=== PATIENT | female | born 1960 | race Caucasian/White ===

== ENCOUNTER 2017-11-07 12:00 | Inpatient (IN) | payer BC ==
[2017-11-07] MEDS ORDERED: NS 500 ML IV ONE (12:19)
--- NOTE | 2017-11-07 12:27 | CPEKG ---
Heart Rate: 58 RR Interval: 1034 P-R Interval: 188 QRSD Interval: 104 QT Interval: 488 QTC Interval: 480 P [place]don: 70 QRS [place]: 4 T Wave Hern[place]: -59 EKG Severity - ABNORMAL ECG - EKG Impression: SINUS RHYTHM EKG Impression: LVH WITH SECONDARY REPOLARIZATION ABNORMALITY Electronically Signed By: Deyvi Holley 07-Nov-2017 15:25:37
[2017-11-07 12:35] LABS: % IMMATURE GRANULYOCYTES 0.2 % (0.0-1.1); ABSOLUTE IMMATURE GRANULOCYTES 0.01 10^3/uL (0.00-0.10); ADD DIFF? NO; ADD MORPH? NO; ADD SCAN? NO; ATYPICAL LYMPHOCYTE FLAG 0 (0-99); FRAGMENT RBC FLAG 0 (0-99); HEMATOCRIT 37.1 % (38.0-47.0); HEMOGLOBIN 12.6 g/dL (12.6-16.3); LEFT SHIFT FLG 0 (0-99); LIPEMIA HEMOLYSIS FLAG 90 (0-99); MEAN CELL HEMOGLOBIN 30.5 pg (27.9-34.1); MEAN CELL VOLUME 89.8 fL (81.5-99.8); MEAN PLATELET VOLUME 10.4 fL (8.7-11.7); PLATELET CLUMPS FLAG 10 (0-99); PLATELET COUNT 254 10^3/uL (150-400); RED BLOOD CELL COUNT 4.13 10^6/uL (4.18-5.33); RED CELL DISTRIBUTION WIDTH 12.1 % (11.5-15.2)
[2017-11-07 12:44] LABS: APTT 30.1 SEC (23.0-38.0); INR 0.99 (0.83-1.16); PROTIME(PATIENT) 13.3 SEC (12.0-15.0)
[2017-11-07] MEDS ORDERED: IOPAMIDOL (ISOVUE 370) 100 ML BTL IV ONE ×2 (12:47→12:59)
[2017-11-07 12:51] LABS: ANION GAP 15 mEq/L (8-16); CALCIUM 9.9 mg/dL (8.5-10.4); CARBON DIOXIDE 23 mEq/l (22-31); CHLORIDE 105 mEq/L (97-110); CREATININE 0.9 mg/dL (0.6-1.0); GLOMERULAR FILTRATION RATE > 60; GLUCOSE 113 mg/dL (70-100); POTASSIUM 4.2 mEq/L (3.5-5.2); SODIUM 143 mEq/L (134-144)
[2017-11-07 13:04] LABS: TROPONIN I < 0.012 ng/mL (0.000-0.034)
[2017-11-07] MEDS ORDERED: ONDANSETRON 4 MG/2 ML VIAL ONE (13:12)
[2017-11-07] MEDS ORDERED: KETOROLAC 30 MG/1 ML SDV ONE (13:12)
[2017-11-07] MEDS ORDERED: KETOROLAC 30 MG/1 ML SDV IVP ONE (13:22)
[2017-11-07] MEDS ORDERED: ONDANSETRON 4 MG/2 ML VIAL IVP ONE (13:23)
[2017-11-07 13:35] LABS: AMYLASE 83 IU/L (30-110)
[2017-11-07] MEDS ORDERED: HYDROmorphONE/DILAUDID 1 MG/ML INJ ONE (14:17)
[2017-11-07] MEDS ORDERED: HYDROmorphONE/DILAUDID 1 MG/ML INJ IVP ONE (14:18)
--- NOTE | 2017-11-07 14:23 | CPEKG ---
Heart Rate: 52 RR Interval: 1154 P-R Interval: 164 QRSD Interval: 98 QT Interval: 500 QTC Interval: 465 P [place]: 34 QRS [place]: 2 T Wave [place]: -51 EKG Severity - ABNORMAL ECG - EKG Impression: SINUS RHYTHM EKG Impression: PROBABLE LEFT VENTRICULAR HYPERTROPHY EKG Impression: ABNORMAL T, CONSIDER ISCHEMIA, DIFFUSE LEADS Electronically Signed By: Deyvi Holley 07-Nov-2017 15:25:37
--- NOTE | 2017-11-07 14:37 | EDPHY ---
H & P Time Seen by Provider: 11/07/17 12:17 HPI/ROS: HPI Chest pain. 57-year-old female by private vehicle with her . This patient was doing a spin class down in [place] this last Friday. She developed substernal chest pain described as pressure and squeezing sensation mid lower anterior chest. She was seen at the emergency department at [facility]. She had an abnormal EKG suggestive of Wellen syndrome. She was taken to the labor commissioner for this. She had clean coronary arteries. She was diagnosed with a pericarditis, possible myocarditis. She was prescribed indomethacin and discharged from the hospital. She reports that her pain returned today despite taking the indomethacin and was worse than it was on Friday. She has not been physically exerting herself she was on Friday. I received a call from her religious healer, Dr. Alex Bueno who explained to me that she was coming in. He requested that we get an echocardiogram as well as a standard emergency department workup for her. She does have associated shortness of breath with the pain. ROS: Constitutional: No fever, no chills. No weakness. Eyes: No discharge. No changes in vision. ENT: No sore throat. No nasal congestion or rhinorrhea. Respiratory: No cough. As above. Cardiac: As above, no palpitations. Gastrointestinal: No abdominal pain, no vomiting, no diarrhea. Genitourinary: No hematuria. No dysuria or increased frequency with urination. Musculoskeletal: No back pain. No neck pain. No myalgias or arthralgias. Skin: No rashes. Neurological: No headache. No focal weakness or altered sensation. Past medical history: Is as above. Social history: Nonsmoker. No alcohol. Here with her . Physical Exam: General Appearance: Alert, she appears uncomfortable and anxious. This patient is responding to questions appropriately and in full sentences. This patient appears well-hydrated and well-nourished. Eyes: Pupils equal and round no pallor or injection. No lid edema, erythema or injection. Respiratory: There are no retractions, lungs are clear to auscultation with good air movement bilaterally. Cardiovascular: Regular rate and rhythm. No murmur. Gastrointestinal: Abdomen is soft and nontender, no masses, bowel sounds normal. No focal tenderness at McBurney's point. No Wright sign. Neurological: Motor sensory function is grossly intact. Cranial nerves are normal. Gait is normal. Skin: Warm and dry, no rashes. Musculoskeletal: Neck is supple and nontender. Extremities are symmetrical. All joints range without pain or impingement. Psychiatric: No agitation. No depression. Database: EKG: EKG time is 12:22 p.m.: EKG shows a narrow complex sinus rhythm with ventricular rate of 58. T-wave inversions noted in 3 and AVF. Biphasic inverted T-wave in lead 2. She has got about a mm of J-point elevation in V2. She has a biphasic T-wave noted in V3 and V4 suggestive of Wellen syndrome. Interpreted by me. EKG time is 2:22 p.m.: EKG shows a sinus rhythm with ventricular rate of 59. Biphasic T-waves noted in lead 2, 3 and AVF as well as V3. T-wave inversions in V4 and V5. Interpreted by me. Discussed results of EKG with religious healer Dr. Alex Bueno who reviewed the EKGs as well. Similar findings on her EKGs performed at [facility]. This is what prompted them to take her to the checker in originally. Imaging: CT angiogram of the chest; No pulmonary embolism. No evidence of pericardial effusion. Otherwise unremarkable study. Results were discussed with staff radiologist Dr. Ernesto Fofana. Echocardiogram;. I spoke with the autobody technician perform this study. There was no obvious pericardial effusion or wall motion abnormality. This study will be officially read by the cardiology service. Procedures: Emergency department course: IV was placed. Vital signs reviewed. She is moderately hypertensive. Vital signs are otherwise normal. EKG obtained and reviewed by myself. Secondary to her history a pericarditis and the nature of her pain and recent diagnostic workup she was given 30 mg of IV Toradol. She had relief in her pain with this medication. 2:40 p.m., patient re-evaluated. Results of her diagnostic workup as above discussed with her. She states that her pain is now coming back. She will be given 0.25 mg to 0.5 mg of IV hydromorphone for this. I explained plan for admission. All of her questions were answered. Hospitalist paged. 255, spoke with hospitalist. Dr. Marguerite Wakefield. Case discussed in detail. Patient admitted under the care of the hospitalist service. Cardiology to consult further as needed. Differential Diagnosis: The differential diagnosis on this patient includes but is not limited to pericarditis, myocarditis. Pericardial effusion, aortic dissection, pulmonary embolism, acute coronary syndrome unlikely. This represents a partial list of diagnoses considered. These considerations are based on history, physical exam , past history, reassessment and diagnostic testing. Smoking Status: Never smoked Constitutional: Initial Vital Signs Temperature (C) 36.3 C 11/07/17 12:06 Heart Rate 66 11/07/17 12:06 Respiratory Rate 18 11/07/17 12:06 Blood Pressure 169/103 H 11/07/17 12:06 O2 Sat (%) 96 11/07/17 12:06 O2 Delivery Mode Room Air O2 (L/minute) 2 Allergies/Adverse Reactions: bee pollen Allergy (Verified 11/07/17 12:09) bee venom protein (honey bee) Allergy (Verified 11/07/17 12:09) Penicillins Allergy (Verified 11/07/17 12:09) Home Medications: Medication Instructions Recorded Indomethacin 11/07/17 Prevacid 11/07/17 Medical Decision Making - Diagnostics Imaging Results: Imaging Impressions Chest/Thorax CTA 11/07/17 12:19 Impression: 1. No visible pulmonary embolus. 2. Probable mild left subclavian vein narrowing. 3. Additional findings as above. Findings discussed with Lily Venegas answering for Dr. Deyvi Holley on November 07, 2017 at 1355 hours. - Data Points Laboratory Results: Laboratory Results 11/07/17 12:20 11/07/17 12:20 11/07/17 11/07/17 11/07/17 12:20 12:20 12:20 WBC 5.23 10^3/uL 10^3/uL (3.80-9.50) RBC 4.13 10^6/uL L 10^6/uL (4.18-5.33) Hgb 12.6 g/dL g/dL (12.6-16.3) Hct 37.1 % L % (38.0-47.0) MCV 89.8 fL fL (81.5-99.8) MCH 30.5 pg pg (27.9-34.1) MCHC 34.0 g/dL g/dL (32.4-36.7) RDW 12.1 % % (11.5-15.2) Plt Count 254 10^3/uL 10^3/uL (150-400) MPV 10.4 fL fL (8.7-11.7) Neut % (Auto) 57.7 % % (39.3-74.2) Lymph % (Auto) 31.2 % % (15.0-45.0) [place] % (Auto) 9.0 % % (4.5-13.0) Eos % (Auto) 1.5 % % (0.6-7.6) Baso % (Auto) 0.4 % % (0.3-1.7) Nucleat RBC Rel Count 0.0 % % (0.0-0.2) Absolute Neuts (auto) 3.02 10^3/uL 10^3/uL (1.70-6.50) Absolute Lymphs (auto) 1.63 10^3/uL 10^3/uL (1.00-3.00) Absolute Monos (auto) 0.47 10^3/uL 10^3/uL (0.30-0.80) Absolute Eos (auto) 0.08 10^3/uL 10^3/uL (0.03-0.40) Absolute Basos (auto) 0.02 10^3/uL 10^3/uL (0.02-0.10) Absolute Nucleated RBC 0.00 10^3/uL 10^3/uL (0-0.01) Immature Gran % 0.2 % % (0.0-1.1) Immature Gran # 0.01 10^3/uL 10^3/uL (0.00-0.10) PT 13.3 SEC SEC (12.0-15.0) INR 0.99 (0.83-1.16) APTT 30.1 SEC SEC (23.0-38.0) D-Dimer 0.54 ug/mLFEU H ug/mLFEU (0.00-0.50) Sodium 143 mEq/L mEq/L (134-144) Potassium 4.2 mEq/L mEq/L (3.5-5.2) Chloride 105 mEq/L mEq/L (97-110) Carbon Dioxide 23 mEq/l mEq/l (22-31) Anion Gap 15 mEq/L mEq/L (8-16) BUN 20 mg/dL mg/dL (7-23) Creatinine 0.9 mg/dL mg/dL (0.6-1.0) Estimated GFR > 60 Glucose 113 mg/dL H mg/dL (70-100) Calcium 9.9 mg/dL mg/dL (8.5-10.4) Creatine Kinase 60 IU/L IU/L (0-156) CK-MB (CK-2) Fraction 0.70 ng/mL ng/mL (0.00-3.19) Troponin I < 0.012 ng/mL ng/mL (0.000-0.034) NT-Pro-B Natriuret Pep 111 pg/mL pg/mL (0-125) Amylase 83 IU/L IU/L (30-110) Lipase 51 IU/L IU/L (23-300) TSH 2.760 uIU/mL uIU/mL (0.465-4.680) Medications Given: Discontinued Medications Hydromorphone HCl (Dilaudid) 0.5 mg IVP EDNOW ONE Stop: 11/07/17 14:19 Last Admin: 11/07/17 14:23 Dose: 0.5 mg Sodium Chloride (Ns) 500 mls @ 1,000 mls/hr IV EDNOW ONE PRN Reason: Protocol Stop: 11/07/17 12:48 Last Admin: 11/07/17 13:26 Dose: 500 mls Ketorolac Tromethamine (Toradol) 30 mg IVP EDNOW ONE Stop: 11/07/17 13:23 Last Admin: 11/07/17 13:26 Dose: 30 mg Ondansetron HCl (Zofran) 4 mg IVP EDNOW ONE Stop: 11/07/17 13:24 Last Admin: 11/07/17 13:26 Dose: 4 mg Departure - Departure Disposition: [facility] Inpatient Acute Clinical Impression: Pericarditis, Chest pain Referrals: Garima Sewell MD [Primary Care Provider] - As per Instructions
[2017-11-07] MEDS ORDERED: traMADol 50 MG TAB PO PRN (16:25)
[2017-11-07] MEDS ORDERED: oxyCODONE IR 5 MG TAB PO PRN (16:25)
[2017-11-07] MEDS ORDERED: ONDANSETRON 4 MG/2 ML VIAL IVP PRN (16:25)
--- NOTE | 2017-11-07 16:41 | ECHO ---
[email or web address] [address] [address] Main: [phone] Fax: [email or web address] Echocardiogram Name: POORNIMA DICKSON MR#: [id number] Study Date: 11/07/2017 Study Time: 12:59 PM Date of : 1960 Age: 57 year(s) Height: 180.3 cm (71 in.) Weight: 62.6 kg (138 lb.) BSA: 1.8 m2 Gender: Female Examination: Echo Indication: Chest Pain, Hx of Pericarditis Image Quality: Contrast: Requested by: Deyvi Cota BP: 159 mmHg/101 mmHg Heart Rate: Rhythm: Indication: Chest Pain, Hx of Pericarditis Procedure Staff Equipment Operating Engineer: Ian Herrmann Reading Physician: Jb Dang Requesting Provider: Conclusions: Normal size left ventricle. Mild concentric LV hypertrophy. Normal global systolic LV function. EF is 68 %. No regional wall motion abnormality. Normal RV function. No pericardial effusion. Measurements: Chambers Valvular Assessment AV/MV Valvular Assessment TV/PV Normal Normal Normal Name Value Range Name Value Range Name Value Range Ao Kallie (MM): 3.1 cm (2.2 cm-3.7 AV Vmax: 1.07 m/s (1 m/s-1.7 PV Vmax: 0.86 m/s (0.6 m/s-0.9 cm) m/s) m/s) IVSd (2D): 1.0 cm (0.6 cm-1.1 AV maxP mmHg ( - ) PV PGmax: 3 mmHg ( - ) cm) LVOT Vmax: 0.58 m/s (0.7 m/s-1.1 LVDd (2D): 4.6 cm (3.9 cm-5.3 m/s) cm) MV E Vmax: 0.91 m/s ( - ) LVDs (2D): 2.8 cm (2.1 cm-4 MV A Vmax: 0.56 m/s ( - ) cm) MV E/A: 1.62 ( - ) LVPWd (2D): 1.0 cm ( - ) LVEF (2D): 68 (>=54 %) Continued Measurements: Chambers Valvular Assessment AV/MV Name Value Name Value LADs Lon.2 cm MV E/E' Septal: 10.90 LA Area: 14.1 cm2 MV E/E' Lateral: 5.80 Patient: POORNIMA DICKSON Study Date: 11/07/2017 Page 1 of 2 12:59 PM Findings: Left Ventricle: Normal size left ventricle. Mild concentric LV hypertrophy. Normal global systolic LV function. EF is 68 %. No regional wall motion abnormality. Right Ventricle: Normal size right ventricle. Normal RV function. Left Atrium: The left atrium is normal in size. Right Atrium: The right atrium is normal in size. Mitral Valve: The mitral valve is normal in appearance and function. Trivial mitral valve regurgitation. Aortic Valve: The aortic valve is tri-leaflet. The aortic valve is normal in appearance and function. Tricuspid Valve: The tricuspid valve is normal in appearance and function. Pulmonic Valve: The pulmonic valve is normal in appearance and function. Aorta: The aorta is normal. Pericardium: No pericardial effusion. (No Signature Object) Patient: POORNIMA DICKSON Study Date: 11/07/2017 Page 2 of 2 12:59 PM [id number]
--- NOTE | 2017-11-07 17:30 | GHP ---
[f rep st] HISTORY AND PHYSICAL DATE OF ADMISSION: 11/07/2017 CHIEF COMPLAINT: Chest pain. HISTORY: The patient is a 57-year-old female who initially developed chest pain 3 days ago during a spin class. She went to the emergency room at [facility]. She had an abnormal EKG consistent with Well ens' syndrome. She went to cardiac catheterization and had clean coronaries. She was diagnosed with pericarditis, possible myocarditis, and discharged on indomethacin. She did well for 2 days and nya n was well controlled. However, this morning the pain has subsequently worsened and she has develope d some shortness of breath. She describes a left-sided pressure and it feels like she cannot breathe . She became pale and had chills and fatigue. Pain at its worst was an 8/10, and was much worse whe n lying down flat. PAST MEDICAL HISTORY: Negative. PAST SURGICAL HISTORY: Ectopic . MEDICATIONS: Calcium. ALLERGIES: Penicillin and bee pollen. SOCIAL HISTORY: No smoking. Drinks wine 3 times a week. Lives with her , who is a urologist in [place]. REVIEW OF SYSTEMS: Complete review of systems obtained. Review of systems negative regarding consti tutional, HEENT, GI, pulmonary, cardiovascular, , hematology, skin, musculoskeletal, endocrine, and psych, except for positives and negatives as noted in HPI. FAMILY HISTORY: Mom had diabetes and bladder cancer. Father with a stent and pacemaker. PHYSICAL EXAMINATION: GENERAL: Well-developed, well-nourished female, in no acute distress. VITAL SIGNS: Temperature 36.3, pulse 66, blood pressure 171/101, saturating 98% on room air. EYES: Sarah l conjunctivae. Pupils equal, reactive to light. ENT: Normal ears and nose. Hearing intact. Norm al lips and teeth. Oropharynx moist. NECK: Trachea midline. No thyromegaly. CHEST: Normal respi ratory effort. Lungs clear to auscultation bilaterally. CARDIOVASCULAR: Regular rate and rhythm. No murmur. No rub. No lower extremity edema. ABDOMEN: Soft, nontender. No hepatosplenomegaly. S KIN: Warm, dry, intact. No rash. MUSCULOSKELETAL: No cyanosis or clubbing. Strength is 5/5 upper and lower extremities. NEURO: Cranial nerves intact. Normal sensation to light touch. PSYCH: Al ert and oriented x3. Normal mood and affect. Normal judgment and insight. Normal memory. LABORATORY DATA: White count 5.23, hematocrit 37.1, platelets 254. Sodium 143, potassium 4.2, chlor jose elias 105, bicarb 23, BUN 20, creatinine 0.9, glucose 113. TSH is 2.76. Troponins negative. INR 0.99 . D-dimer 0.54. EKG viewed by me. My personal interpretation is normal sinus rhythm, diffuse T-wav e inversions. CT angiogram of the chest was negative for PE. ASSESSMENT AND PLAN: 1. Viral pericarditis with worsening chest pain. CT angiogram of the chest was negative for PE. Ec hocardiogram performed in the emergency room. Preliminary report is stating no buildup of pericardia l fluid. We will continue NSAIDs. I have spoken with Dr. Bueno, and would also like to add colchic ine. Cardiology will see her in consultation. 2. Hypertension. I suspect her very elevated blood pressures on presentation are due to her pain. These will be monitored closely. CODE STATUS: Full. ADMISSION STATUS: 1. We will admit to observation. Anticipate discharge home tomorrow if she is feeling better. 2. DVT prophylaxis. She is low risk. We will hold off on pharmacologic prophylaxis at this time. /[id number]/MODL
[2017-11-07] MEDS: COLCHICINE 0.6 MG CAP/TAB PO SCH (20:30)
[2017-11-07] MEDS: CALCIUM CARBONATE 500 MG TAB PO SCH (20:31)
[2017-11-07] MEDS: ACETAMINOPHEN 500 MG TAB PO PRN (20:36)
[2017-11-07] MEDS ORDERED: INDOMETHACIN 25 MG CAP PO PRN (22:00)
[2017-11-08] MEDS: ACETAMINOPHEN 500 MG TAB PO PRN ×2 (05:51→12:04)
[2017-11-08] MEDS: COLCHICINE 0.6 MG CAP/TAB PO SCH ×2 (08:36→20:50)
[2017-11-08] MEDS ORDERED: PANTOPRAZOLE SODIUM 40 MG TAB PO SCH (09:00)
--- NOTE | 2017-11-08 11:02 | HOSPPROG ---
Hospitalist Progress Note Assessment/Plan: 57 yo female who was seen at [facility] last week for chest pain and FRANCO. W/U there included a normal cardiac cath. She was found to have viral pericarditis and started on indomethacin. She did well for a few days but has similar sx's yesterday and presented to our E.D. and was admitted. She was started on Colchicine and her Indomethacin was resumed. She is not asymptomatic. She also c/o of acid reflux symptoms and was started on protonix 40mg daily while at [facility]. She reports that at times her sx's are worse after meal, but this pattern is not always present. Does report burning sensation in her throat. #Viral pericarditis -cont indomethacin -cont colchicine #GERD and GI proph -cont Protonix once daily -per her request, GI will consult #?Granulomas on CTA, incidental finding. -She is afebrile, has no leukocytosis, no constitutional symptoms, on RA, no hx of AI disease -I reviewed the case with Radiology and Pulm. Radiology does not see any granulomas. Pulm agrees that no further w/u is needed but has offered outpatient follow up #chest pain, due to viral pericarditis. She denies CP at this time Plan: per above GI consult pending Dispo: pending above. D/c today or tomorrow Subjective: no further chest pain. no SOB. No leg swelling. nO palpitations Objective: Vital Signs Temp Pulse Resp BP Pulse Ox 36.6 C 58 L 14 128/89 H 95 11/08/17 07:14 11/08/17 07:14 11/08/17 07:14 11/08/17 07:14 11/08/17 07:14 11/07/17 11/08/17 11/09/17 05:59 05:59 05:59 Intake Total 1720 Output Total 500 Balance 1220 PT 13.3 SEC (12.0-15.0) 11/07/17 12:20 INR 0.99 (0.83-1.16) 11/07/17 12:20 - Time Spent With Patient Time Spent with Patient: greater than 35 minutes Time Spent with Patient: Greater than 35 minutes spent on this patients care, greater than 50% of time spent counseling, educating, and coordinating care regarding the above mentioned plan. - Physical Exam Constitutional: no apparent distress Eyes: PERRL, EOMI Ears, Nose, Mouth, Throat: moist mucous membranes, hearing normal Cardiovascular: regular rate and rhythym, no murmur, rub, or gallop, No edema Respiratory: no respiratory distress, no rales or rhonchi, clear to auscultation Gastrointestinal: normoactive bowel sounds, soft, non-tender abdomen, no palpable masses Skin: warm Neurologic: AAOx3 Psychiatric: interacting appropriately, not anxious, not encephalopathic Lymph, Heme, Immunologic: no cervical LAD ICD10 Worksheet Patient Problems: Problems Problem Status Onset Chest pain Acute Pericarditis Acute
--- NOTE | 2017-11-08 12:23 | GCON ---
[f rep st] CONSULTATION CARDIOLOGY CONSULTATION. DATE OF CONSULTATION: 11/08/2017 REFERRING PHYSICIAN: Doug Martel MD INDICATION: Chest pain. HISTORY OF PRESENT ILLNESS: The patient is 57 years old. She has a cardiovascular history significa nt for hypertension which was diagnosed about 10 years ago. Apparently, at that time, she was worked up and was diagnosed with an estrogen deficiency. Since being on hormone replacement, her pressure has resolved. She is typically very active. Apparently, she took some time off from her exercise an d last Friday started a spin class. During a spin class she was noted to have chest pain. This is described as a pressure sensation under her left breast. The pain was respirophasic and positional. She presented to [facility] with these symptoms. She had a mildly abnormal EKG and ultimately underwent cardiac catheterization. That was noted to be normal, and she was started on a combinatio n of indomethacin, as well as a proton pump inhibitor for her stomach. With that, her pain initially improved. However, yesterday she had a recurrent episode of pain described as 8/10. Again, the nya n was left-sided below her left breast, and associated with a sensation of not being able to take a f ull breath. She notes the pain was worse with deep inspiration again, worse with lying down. She romero s had some slight chills with no cough, and she denies edema. She has no history of DVT or PE. She does not recall having chest wall injury. Because of her chest discomfort, she came to the Emergency Department here. On arrival, she was hemodynamically stable with initial blood pressure of 160/103 and a heart rate of 66. Room air saturations were 96%. Her blood work indicated an elevated D-dimer which led to a chest CT scan. The chest CT scan did not demonstrate any evidence of PE. The aorta was noted to be normal caliber without dissection. Additionally, her initial troponin was also noted to be normal. Her electrocardiogram demonstrated sinus rhythm at 52 beats per minute. She was note d to have biphasic asymmetric T-wave inversions in the anterolateral leads associated with increased voltages. Additionally, she had similar T-wave inversions noted in the inferior leads. Overnight sh chelsea has been treated with a continuation of her Indocin. Additionally, she has oxycodone which has bee n given p.r.n., and she was started on colchicine. Today, she states she feels a little bit better. She still has 3/10 left-sided chest discomfort. PAST MEDICAL HISTORY: 1. Distant history of hypertension as described above. 2. Chest pain as noted above. PAST SURGICAL HISTORY: She had previous ectopic . MEDICATIONS: Apparently, she takes calcium supplementation. She did mention that in the past she romero d been on hormone replacement. ALLERGIES: Penicillin. This is a childhood allergy. SOCIAL HISTORY: She is very active. She likes to exercise 5 days a week. Typically, she has no sina st discomfort with activities and no symptoms. She does have a boyfriend currently and has 3 sons fr om a previous marriage. She uses alcohol sparingly. She is a nonsmoker. FAMILY HISTORY: Negative for premature atherosclerosis. REVIEW OF SYSTEMS: A complete 10-point review of systems was performed and with the exception of the above positives is, otherwise, negative. PHYSICAL EXAMINATION: VITAL SIGNS: Currently, her blood pressure is 128/89. Her heart rates in the 50s. O2 saturations are 95% on room air. She has been afebrile since admission. GENERAL: She is a healthy white female in no acute distress. HEENT: No jugular venous distention, adenopathy or thy romegaly. Carotids are 2+ and brisk with no bruits. RESPIRATORY: She speaks in full sentences usin g no accessory muscles. On auscultation, she has clear lung hansen bilaterally. CARDIAC: Precordial inspection demonstrates reproducible chest wall tenderness immediately below her left breast in an a tyler the size of the tip of my thumb. She notes that this reproduces a large component of her chest p ain, although does not exactly reproduce her pain. The pain was described as 10/10 when I would push on her chest. She has no rash or visible vesicles. Her PMI is nondisplaced. On auscultation, she has a regular rate and rhythm with a 1/6 holosystolic murmur at the left sternal border, and no rub. ABDOMEN: Soft without masses or hepatosplenomegaly. She has a nonpalpable aorta. EXTREMITIES: Wa rm and dry and well perfused. She has no edema. She has 2+ dorsal pedal posterior tibial pulses not ed. NEUROLOGIC: She is alert and oriented with pleasant mood and affect. She moves all 4 limbs spo ntaneously. LABORATORY DATA: DATABASE: Her electrocardiogram was described above. She had a basic metabolic pr ofile which was normal. Troponin was negative. Amylase and lipase were normal. TSH was 2.76. Her D-dimer was slightly elevated at 0.54, which prompted the CT scan, which was described above. Her CB C is remarkable for white blood cell count 5.23, hematocrit 37.1, platelet count 254,000. IMPRESSION: The patient is 57 years old. She presents with recurrent left-sided chest discomfort. By physical examination, she has reproducible chest wall tenderness. Her pain is respirophasic and p ositional, and the fact that she is worse with deep breaths and worse when lying down. She has had n o recent upper respiratory infections, and there is no history of deep vein thrombosis or pulmonary e mbolus. On Friday she had a coronary angiogram done at [facility], and she was told that was normal. Here, her cardiac enzymes are negative, and her echocardiogram is unremarkable. She has no rub on physical examination. CT scan of the chest was negative for PE and negative for aortic dissec tion. My overall impression is that this represents chest wall tenderness. A certain component of u nderlying pericarditis cannot be completely excluded. She does have a mildly abnormal electrocardiog ada indicating T-wave inversions in the inferior and anterolateral leads. These are likely persisten t juvenile T-wave changes. I do not have any comparison EKGs. However, she has had an extensive wor kup with no objective findings of cardiac or vascular pathology. RECOMMENDATIONS: 1. Prior to discharge, I would like her to have an erythrocyte sedimentation rate and a C-reactive p rotein drawn. 2. At this point, I think that she can be discharged from the hospital. 3. She has experienced nausea with Indocin. I would like to switch her over to naproxen. She can t federico this daily along with a proton pump inhibitor. 4. We will plan to continue her colchicine here for the short term. 5. I would like her to follow up with one of our providers early next week. 6. I did ask her to call us back immediately if she has worsening symptoms. /[id number]/MODL
[2017-11-08 12:35] LABS: % IMMATURE GRANULYOCYTES 0.4 % (0.0-1.1); ABSOLUTE IMMATURE GRANULOCYTES 0.02 10^3/uL (0.00-0.10); ADD DIFF? NO; ADD MORPH? NO; ADD SCAN? NO; ATYPICAL LYMPHOCYTE FLAG 0 (0-99); FRAGMENT RBC FLAG 0 (0-99); HEMATOCRIT 32.8 % (38.0-47.0); HEMOGLOBIN 11.5 g/dL (12.6-16.3); LEFT SHIFT FLG 0 (0-99); LIPEMIA HEMOLYSIS FLAG 90 (0-99); MEAN CELL HEMOGLOBIN 31.4 pg (27.9-34.1); MEAN CELL HEMOGLOBIN CONCENTR. 35.1 g/dL (32.4-36.7); MEAN CELL VOLUME 89.6 fL (81.5-99.8); MEAN PLATELET VOLUME 10.5 fL (8.7-11.7); PLATELET CLUMPS FLAG 0 (0-99); PLATELET COUNT 244 10^3/uL (150-400); RED BLOOD CELL COUNT 3.66 10^6/uL (4.18-5.33); RED CELL DISTRIBUTION WIDTH 12.1 % (11.5-15.2)
[2017-11-08 14:04] LABS: SEDIMENTATION RATE 11 MM/HR (0-30)
--- NOTE | 2017-11-08 14:51 | PDMN ---
Medical Necessity Medical necessity: C/M review: Patient meets INPT criteria under MCG M-89 Chest pain, M-550 Esopahgeal disease; Acute and persistent viral pericarditis, chest pain, acute and persistent burning sensation in throat despite oral Protonix 40 mg daily, , 11/07/2017 Hgb 12.6, Hct 37.1, 11/08/2017 Hgb 11.5, Hct 32.8 requiring planned GI consult, 11/09/2017 EGD and colonoscopy, ongoing cardiac monitoring , IV fluids, IV Pantoprazole BID, comorbid GERD. anticipates > 2 MN LOS for ongoing med nec for eval and TX of above.
--- NOTE | 2017-11-08 14:52 | ASMTCMCOM ---
CM Note CM Note Notes: Reviewed chart and discussed w/RN. Anticipate dc home independantly when medically stable. Date Signed: 11/08/2017 02:51 PM Electronically Signed By:Veronica Ivy RN
[2017-11-08] MEDS ORDERED: PEG 3350/NA SULF,BICARB,CL/KCL (GAVILYTE-G) 4000 ML BTL PO ONE (19:00)
[2017-11-08] MEDS: NAPROXEN SODIUM 220 MG TAB PO SCH (20:49)
[2017-11-08] MEDS: PANTOPRAZOLE SODIUM 40 MG VIAL IVP SCH (20:50)
[2017-11-08] MEDS: CALCIUM CARBONATE 500 MG TAB PO SCH (21:58)
[2017-11-09] MEDS ORDERED: LR 1,000 ML IV SCH (00:01)
[2017-11-09] MEDS: ACETAMINOPHEN 500 MG TAB PO PRN (02:10)
[2017-11-09 07:46] LABS: ADD DIFF? NO; ADD MORPH? NO; ADD SCAN? NO; ATYPICAL LYMPHOCYTE FLAG 10 (0-99); FRAGMENT RBC FLAG 0 (0-99); HEMATOCRIT 36.5 % (38.0-47.0); HEMOGLOBIN 12.8 g/dL (12.6-16.3); LEFT SHIFT FLG 0 (0-99); LIPEMIA HEMOLYSIS FLAG 90 (0-99); MEAN CELL HEMOGLOBIN 30.8 pg (27.9-34.1); MEAN CELL HEMOGLOBIN CONCENTR. 35.1 g/dL (32.4-36.7); MEAN PLATELET VOLUME 10.5 fL (8.7-11.7); PLATELET CLUMPS FLAG 0 (0-99); PLATELET COUNT 255 10^3/uL (150-400); RED BLOOD CELL COUNT 4.15 10^6/uL (4.18-5.33); RED CELL DISTRIBUTION WIDTH 12.1 % (11.5-15.2)
[2017-11-09] MEDS ORDERED: PROPOFOL/EMULSION 500 MG/50 ML BOTTLE IV ONE (08:07)
[2017-11-09] MEDS ORDERED: MIDAZOLAM 2 MG/2 ML VIAL ONE (08:07)
[2017-11-09] MEDS ORDERED: LIDOCAINE 2% 5 ML SDV ONE (08:07)
--- NOTE | 2017-11-09 08:12 | PDANEPAE ---
ANE History of Present Illness egd/colon ANE Past Medical History - Cardiovascular History Hx Hypertension: Yes Hx Arrhythmias: No Hx Chest Pain: Yes Hx Coronary Artery / Peripheral Vascular Disease: No Hx CHF / Valvular Disease: No Hx Palpitations: No - Pulmonary History Hx COPD: No Hx Asthma/Reactive Airway Disease: No Hx Recent Upper Respiratory Infection: No Hx Oxygen in Use at Home: No Hx Sleep Apnea: No Sleep Apnea Screening Result - Last Documented: Negative - Endocrine History Hx Diabetes: No Hypothyroid: No Hyperthyroid: No - Renal History Hx Renal Disorders: No - Liver History Hx Hepatic Disorders: No - Neurological & Psychiatric Hx Hx Neurological and Psychiatric Disorders: No - GI History GERD: mild ANE Review of Systems Review of Systems: - Exercise capacity METS (RN): 4 METS ANE Patient History - Allergies Allergies/Adverse Reactions: bee pollen Allergy (Verified 11/07/17 12:09) bee venom protein (honey bee) Allergy (Verified 11/07/17 12:09) Penicillins Allergy (Verified 11/07/17 12:09) - Home Medications Home Medications: Acetaminophen [Tylenol ES 500 mg (*)] 1,000 mg PO Q6 PRN 11/07/17 [Last Taken 08:00] Calcium Citrate 500 mg PO HS 11/07/17 [Last Taken 11/06/17] Indomethacin [Indocin 25 mg (*)] 50 mg PO TID PRN 11/07/17 [Last Taken 11/07/17 08:00] Pantoprazole Sodium [Protonix 40mg (*)] 40 mg PO DAILY 11/07/17 [Last Taken ] - NPO status NPO Status: no food or drink >8 hours NPO Since - Liquids (Date): 11/08/17 NPO Since - Liquids (Time): 06:00 NPO Since - Solids (Date): 11/08/17 NPO Since - Solids (Time): 06:00 - Smoking Hx Smoking Status: Never smoked ANE Labs/Vital Signs - Labs Result Diagrams: 11/09/17 07:30 11/07/17 12:20 - Vital Signs Blood Pressure: 142/99 Heart Rate: 66 Respiratory Rate: 14 O2 Sat (%): 97 Height: 180.34 cm Weight: 64.3 kg ANE Physical Exam - Airway Mallampati Score: Class 2 Mouth exam: normal dental/mouth exam - Pulmonary Pulmonary: no respiratory distress - Cardiovascular Cardiovascular: regular rate and rhythym - ASA Status ASA Status: II ANE Anesthesia Plan Anesthesia Plan: MAC
[2017-11-09 08:23] LABS: ANION GAP 11 mEq/L (8-16); CALCIUM 9.7 mg/dL (8.5-10.4); CARBON DIOXIDE 23 mEq/l (22-31); CHLORIDE 107 mEq/L (97-110); CREATININE 0.8 mg/dL (0.6-1.0); GLOMERULAR FILTRATION RATE > 60; GLUCOSE 85 mg/dL (70-100); POTASSIUM 4.2 mEq/L (3.5-5.2); SODIUM 141 mEq/L (134-144)
--- NOTE | 2017-11-09 08:40 | GIREPORT ---
[facility] - Endoscopy Department Patient Name: POORNIMA DICKSON Procedure Date: 11/09/2017 7:55 AM Patient Type: Inpatient Attending MD/ ER Physician: Anastacio Ng MD Procedure: Upper GI endoscopy Indications: Iron deficiency anemia, Unexplained chest pain Providers: Anastacio Ng MD Medicines: Propofol per Anesthesia Complications: No immediate complications. Description of Procedure: After obtaining informed consent, the endoscope was passed under direct vision. Throughout the procedure, the patient's blood pressure, pulse, and oxygen saturations were monitored continuously. The Endoscope was intro duced through the mouth, and advanced to the second part of duodenum. The [facility] er GI endoscopy was accomplished without difficulty. The patient tolerated th e procedure well. Findings: The esophagus was normal. Five non-bleeding cratered, linear and superficial gastric ulcers with pigmented material were found in the gastric antrum and in the prepylor ic region of the stomach. The largest lesion was 10 mm in largest dimensio n. Biopsies were taken with a cold forceps for histology. The duodenal bulb, first portion of the duodenum and second portion of the duodenum were normal. Estimated Blood Loss: Estimated blood loss: none. Post Op Diagnosis: - Normal esophagus. - Non-bleeding gastric ulcers with pigmented material. Biopsied. - These ulceration are highly likely to be NSAID induced and are the ca use of the iron deficiency anemia. - Normal duodenal bulb, first portion of the duodenum and second portio n of the duodenum. Recommendation: - Await pathology results. - Will treat H.pylori if found in the histology. - Use Protonix (pantoprazole) 40 mg PO BID. - Use sucralfate tablets 1 gram PO QID. - Perform a colonoscopy today. - [facility] for [facility] discharge same day. - Thank you for allowing me to be involved in the care of your patient. Attending Participation: I personally performed the entire procedure without the assistance of a fellow, resident or surg ical reference library assistant. Anastacio Ng MD Anastacio Ng MD 11/09/2017 8:40:30 AM This report has been signed electronicallyDavid MD Berenice Number of Addenda: 0 Note Initiated On: 11/09/2017 7:55 AM [email or web address]
--- NOTE | 2017-11-09 09:00 | GIREPORT ---
[facility] Surgical Services - Endoscopy Department Patient Name: POORNIMA DICKSON Procedure Date: 11/09/2017 8:40 AM Patient Type: Inpatient Attending MD/ ER Physician: Anastacio Ng MD Procedure: Colonoscopy Indications: Iron deficiency anemia Providers: Anastacio Ng MD Medicines: Propofol per Anesthesia Complications: No immediate complications. Estimated blood loss: None. Description of Procedure: After obtaining informed consent, the scope was passed under direct vis ion. Throughout the procedure, the patient's blood pressure, pulse, and oxyg en saturations were monitored continuously. The Colonoscope with irrigatio n channel was introduced through the anus and advanced to the terminal il eum. The colonoscopy was performed without difficulty. The patient tolerated the procedure well. The quality of the bowel preparation was excellent. The terminal ileum, ileocecal valve, appendiceal orifice, and rectum were photographed. Findings: The perianal and digital rectal examinations were normal. Pertinent negatives include normal sphincter tone and no palpable rectal lesions. The terminal ileum appeared normal. The entire examined colon appeared normal. Estimated Blood Loss: Estimated blood loss: none. Post Op Diagnosis: - The examined portion of the ileum was normal. - The entire examined colon is normal. - No specimens collected. - No abnormalities to explain iron deficiency anemia. Recommendation: - Repeat colonoscopy in 5 years for screening purposes due to the famil y history of colon cancer. - Advance diet as tolerated. - Continue present medications. - Patient has a contact number available for emergencies. The signs and symptoms of potential delayed complications were discussed with the pat ient. Return to normal activities tomorrow. Written discharge instructions we re provided to the patient. - [facility] to [facility] for ongoing care. - Thank you for allowing me to be involved in the care of your patient. Attending Participation: I personally performed the entire procedure without the assistance of a fellow, resident or surg ical clinical trials assistant. Anastacio Ng MD Anastacio Ng MD 11/09/2017 9:01:08 AM This report has been signed electronicallyDavid MD Berenice Number of Addenda: 0 Note Initiated On: 11/09/2017 8:40 AM Total Procedure Duration Time 0 hours 15 minutes 40 seconds [email or web address]}
[2017-11-09] MEDS ORDERED: NALOXONE HCL 0.4 MG/ML INJ IVP PRN (09:03)
[2017-11-09] MEDS ORDERED: fentaNYL 100 MCG/2 ML INJ IVP PRN (09:03)
[2017-11-09] MEDS ORDERED: ALBUTEROL 3 ML DEYVIAL IH PRN (09:03)
[2017-11-09] MEDS ORDERED: LR 500 ML IV PRN (09:03)
--- NOTE | 2017-11-09 09:04 | POSTANESTH ---
Post Anesthetic Evaluation Cardiovascular Status: Normal, Stable Respiratory Status: Normal, Stable Level of Consciousness/Mental Status: Can Participate in Eval Pain Control: Adequate, Prn Tx Ordered Nausea/Vomiting Control: Adequate, Prn Tx Ordered Complications Possibly Related to Anesthesia: None Noted
[2017-11-09 09:13] VITALS: PULSE 71
[2017-11-09 09:21] VITALS: TEMP 97.7
[2017-11-09 09:45] VITALS: BP 124/84; RESP 14; O2SAT 97
[2017-11-09] MEDS ORDERED: PANTOPRAZOLE SODIUM 40 MG TAB PO SCH (10:00)
--- NOTE | 2017-11-09 10:11 | PDDCSUM ---
Discharge Summary Discharge Summary: Consultants: Dr. Jim, cardiology Dr. Hu, GI HPI/Hospital course: 57 yo female who was seen at [facility] last week for chest pain and FRANCO. W/U there included a normal cardiac cath. She was found to have viral pericarditis and started on indomethacin. She did well for a few days but has similar sx's yesterday and presented to our E.D. and was admitted. She was started on Colchicine and her Indomethacin was resumed. She also c/o of acid reflux symptoms and was started on protonix 40mg daily while at [facility]. She reports that at times her sx's are worse after meal, but this pattern is not always present. Does report burning sensation in her throat.There was also reported iron deficiency anemia, although her Hgb was normal and Hct was slightly decreased. A repeat H/H dropped and she had an endoscopy and colonoscopy done on the day of discharge Endoscopy revealed 5 gastric non bleeding ulcers, otherwise normal. Colonoscopy was unremarkable. She is being discharged with the plan to f/u with both GI and CV as well her PCP. DDX: #Viral pericarditis -Indomethacin changed to Naproxen -cont colchicine which was started here #CP, likely due to viral pericarditis as well as musculoskeletal #GERD and PUD -Protonix BID -Carafate QID -F/U with Dr. Hu -Will need to f/u gastric biopsies #?Granulomas on CTA, incidental finding. -She is afebrile, has no leukocytosis, no constitutional symptoms, on RA, no hx of AI disease -I reviewed the case with Radiology and Pulm. Radiology does not see any granulomas. Pulm agrees that no further w/u is needed but has offered outpatient follow up Exam: NAD AAOX3 RRR CTAB S/NT/ND NO LE EDEMA MOOD APPROPRIATE MEDS: SEE ABOVE, SEE MED REC F/U: PER ABOVE TOTAL TIME SPENT ON DISCHARGE IS 40 MINUTES
--- NOTE | 2017-11-09 10:21 | GCON ---
[f rep st] CONSULTATION DATE OF CONSULTATION: 11/08/2017 REFERRING PHYSICIAN: Marguerite Wakefield MD Dear Dr. Wakefield: Thank you very kindly for asking me to evaluate this patient in consultation. REASON FOR CONSULTATION: Chest pain and iron deficiency anemia. She is a pleasant 57-year-old female, who developed acute pericarditis while exercising and was hospi talized at [facility]. The cause of the pericarditis was idiopathic. She was placed on indomethacin fo r treatment. She has been experiencing more difficulties with indigestion described as upper abdomin al discomfort with meals and worsening chest pain since starting the Indocin. She denies any melena or hematochezia. She has a family history of colon cancer in a cousin at age 50 and has had 2 previo us colonoscopies, which have been unremarkable. She has never had a personal history of colon polyps . She has never had a previous pericarditis. She is not taking any other blood thinners. She has b een placed on pantoprazole with the initiation of the Indocin. 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 Her hematocrit yesterday fell to 32.8. We are asked to assist with further evaluation and managem ent. PAST MEDICAL AND SURGICAL HISTORY: Significant only for an ectopic . MEDICATIONS: Only calcium. She had been taking iron last year for iron deficiency. ALLERGIES: Penicillin and bee pollen. 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 She drinks alcohol about 3 times a week. No tobacco. No other substance abuse history. REVIEW OF SYSTEMS: CONSTITUTIONAL: Does report some mild fatigue. No fever, chills, night sweats, weight loss, or anorexia. HEENT: Denies headache or visual disturbances. No sore throat. No epist axis. No difficulty swallowing. PULMONARY: She reports shortness of breath when she gets episodes of the chest tightness and pain, which feels like a burning and stabbing discomfort under her breast bone. This is worse with movement. CARDIOVASCULAR: No syncope. No palpitations. No lower extremi ty swelling. Denies orthopnea. GENITOURINARY: No flank pain, hematuria or dysuria. GYNECOLOGIC: N o vaginal discharge or bleeding. RHEUMATOLOGIC: No joint pain, swelling or tenderness. Dermatologi c: No bruising or rash. HEMATOLOGIC: No known bleeding disorders. LYMPH: No adenopathy that she has noted. ENDOCRINE: No heat or cold intolerance. FAMILY HISTORY: Significant for colon cancer in a cousin at age 50. PHYSICAL EXAM: VITAL SIGNS: Blood pressure 142/99, pulse is 66, respirations are 14, oxygenation is 97% on room air. Temperature is 36.9. GENERAL: Healthy appearing female, slightly pale but in no acute distress. HEENT: Normocephalic, atraumatic. Sclerae anicteric. No carotid bruit. No thyrom egaly. NECK: Supple. Oropharynx is clear with good mucous membrane moisture. No mucosal lesions. No lymphadenopathy to the anterior cervical chain. No supraclavicular adenopathy. PULMONARY: Gracie r to auscultation bilaterally without rales or wheeze. Mild chest wall tenderness to palpation along the costochondral margins. CARDIOVASCULAR: Regular rate and rhythm. No rub. No gallop. Normal P [place]. GI: Abdomen is soft, nondistended. No organomegaly. Normal bowel sounds. No abdominal bruit. No tenderness rebound or guarding. No herniation. MUSCULOSKELETAL: Normal gait and station. No joint deformity. DERMATOLOGIC: No rash or jaundice. HEMATOLOGIC AND LYMPH: No groin adenopathy. No bruising. NEUROLOGIC: Alert to person, place, and time. Cranial nerves normal. Motor nonfocal. DATABASE LABORATORIES: White blood count 5.6, hematocrit 32.8, MCV 89, platelets are 244. INR 0.99, sodium 141, potassium 4.2, chloride 107, bicarbonate 23, BUN 20, creatinine 0.9, glucose 85. C-reac tive protein 5.2, amylase 83, lipase 51. TSH is 2.7. IMPRESSION: 1. Chest pain. 2. Upper abdominal pain. 3. Normocytic anemia with a history of iron deficiency. 4. Family history of colon cancer. 5. NSAID use. 6. Pericarditis. RECOMMENDATIONS: 1. Protonix 40 mg IV b.i.d. 2. Monitor H and H. 3. Soft diet. 4. Upper endoscopy and colonoscopy to evaluate her anemia, which we will arrange tomorrow. 5. Please add iron studies to her workup to assess her anemia as well as a B12 level. 6. Further recommendations to follow her endoscopic evaluation. /[id number]/MODL
[2017-11-09] MEDS: NAPROXEN SODIUM 220 MG TAB PO SCH (10:24)
[2017-11-09] MEDS: COLCHICINE 0.6 MG CAP/TAB PO SCH (10:24)
[2017-11-09] MEDS: PANTOPRAZOLE SODIUM 40 MG VIAL IVP SCH (10:26)
--- NOTE | 2017-11-09 12:12 | ASDISCHSUM ---
Discharge Information Plan Status:Home with No Needs Medically Cleared to Leave:11/08/2017 Discharge Date:11/09/2017 10:50 AM CM D/C Disposition:Home, Routine, Self-Care ADT D/C Disposition:Home, Routine, Self-Care Projected Discharge Date:11/09/2017 10:50 AM Transportation at D/C: Discharge Delay Reason: Follow-Up Date:11/09/2017 10:50 AM Discharge Slot: Final Diagnosis: Placement Information Patient Contact Information Contact Name:KEKE Relationship:Life Partner Address:[address] Home Phone: City:[place] Alternate Phone: [facility]/Zip Code:[place] [address] Email: Financial Information Financial Class:HMO and PPO Plans Primary Plan Desc:[employer] OUT OF STATE PPO Primary Plan Number:[id number] Secondary Plan Desc: Secondary Plan Number: Assessment Information [facility] CM Progress Note CM Note CM Note Notes: Reviewed chart and discussed w/RN. Anticipate dc home independantly when medically stable. Date Signed: 11/08/2017 02:51 PM Electronically Signed By:Veronica Ivy RN Intervention Information
== END 2017-11-09 10:50 | disposition home or self-care (01) | DRG 316 ==
LOC: F2W 15:58 → OBSVTOIN 11-08 14:21
PROVIDERS: ADMIT Internal Medicine; ATTEND Internal Medicine
DX: I30.1 Infective pericarditis (principal); K25.9 Gastric ulcer, unspecified as acute or chronic, without hemorrhage or perforation; D50.9 Iron deficiency anemia, unspecified; T39.395A Adverse effect of other nonsteroidal anti-inflammatory drugs [NSAID], initial encounter; K21.9 Gastro-esophageal reflux disease without esophagitis; Q24.8 Other specified congenital malformations of heart; I10 Essential (primary) hypertension
CPT/HCPCS: 96374; G0378; J1170; J1885; J2250; J2405; J2704; Q9967

== ENCOUNTER → 2017-12-02 | Outpatient (CLI) | payer BC, OTHER | LOC: BMCIMAGING 11:29 | PROVIDERS: ATTEND Internal Medicine | DX: N64.4 Mastodynia (principal) ==